=== PATIENT | female | born 1970 | race Two or more races ===

== ENCOUNTER 2019-09-20 05:35 | Day surgery (SDC) | payer OTHER ==
[~2019-09-20 05:35] MED LIST: DOSTINEX PO; FOLIC ACID20 MG PO; VITAMIN D310000 UNIT PO
== END 2019-09-20 11:58 | disposition home or self-care (01) ==
LOC: CIR.AMB 05:35
DX: L72.0 Epidermal cyst (principal); D17.1 Benign lipomatous neoplasm of skin and subcutaneous tissue of trunk

== ENCOUNTER 2025-02-23 08:06 | Outpatient (CLI) | payer OTHER | END 2025-02-23 08:07 | disposition home or self-care (01) | LOC: SONOGRAMA 08:06 | PROVIDERS: ATTEND Pathology Anatomic Pathology & Clinical Pathology | DX: D34 Benign neoplasm of thyroid gland (principal); E07.89 Other specified disorders of thyroid; E04.1 Nontoxic single thyroid nodule ==